=== PATIENT | female | born 2000 | race Caucasian/White ===

== ENCOUNTER 2022-06-05 19:50 | Emergency (ER) | payer OTHER ==
[~2022-06-05] VITALS: Ht 160 cm; Wt 59.0 kg
--- NOTE | 2022-06-05 20:20 | NUR ---
BIBSELF C/O SORE THROAT AND "FEVER" S/P DOG BITE YESTERDAY. -LAC, TDAP UP TO DATE. PATIENT IS AAOX4. ABLE TO MAKE NEEDS KNOWN. PLACED COMFORTABLY IN BED. VITALS CHECKED.
[2022-06-05] MEDS ORDERED: KETOROLAC TROMETHAMINE INJ 30 MG/ML VIAL ONE (20:50)
[2022-06-05] MEDS: KETOROLAC TROMETHAMINE INJ 60 MG/2 ML VIAL IM ONE (20:55)
[2022-06-05] MEDS ORDERED: AMOX-430 PO (21:20)
[2022-06-05] MEDS ORDERED: IBUP-1953 PO (21:20)
--- NOTE | 2022-06-05 21:31 | NUR ---
Patient discharged to home in stable condition. Written and verbal after care instructions given. Patient verbalizes understanding of instruction.
[2022-06-05 21:45] VITALS: BP 106/65
== END 2022-06-05 21:55 | disposition home or self-care (01) ==
LOC: ER 19:53
DX: S80.12XA Contusion of left lower leg, initial encounter (principal); J02.9 Acute pharyngitis, unspecified; W54.0XXA Bitten by dog, initial encounter; Y93.89 Activity, other specified; Y92.89 Other specified places as the place of occurrence of the external cause; Y99.8 Other external cause status
CPT/HCPCS: 99283; 96372; 87880; J1885; 86403-TC